=== PATIENT | male | born 1960 | race Caucasian/White ===

== ENCOUNTER → 2019-10-18 09:51 | Outpatient (CLI) | payer OTHER, SELFPAY ==
--- NOTE | 2019-10-18 | DI.RAD.S_ITS ---
PROCEDURE: XR LUMBAR SPINE 2-3V INDICATIONS: low back pain TECHNIQUE: 2 views of the lumbar spine were acquired. COMPARISON: None. FINDINGS: Bones: 5 iwr-zli-kohrioi vertebrae are present. There is normal bony alignment. No vertebral body compression fractures. No suspicious bony lesions. There is a moderate degree of degenerative disc disease along the lumbosacral spine most pronounced at L4-5 and L5-S1. Additionally, facet osteoarthritis is progressively more prominent from L3 inferiorly and especially at L5-S1. Spinal and foraminal stenosis would be expected as result. Soft tissues: Overlying bowel gas pattern is normal. No suspicious soft tissue calcifications. IMPRESSION: Degenerative disc disease and facet osteoarthritis is progressively more prominent over the lower half of the LS-spine to the degree that significant spinal and foraminal stenosis would be expected at L4-5 and L5-S1. Dictated by: Naseem Wade M.D. on 10/18/2019 at 10:30 Approved by: Naseem Wade M.D. on 10/18/2019 at 10:32
== END ==
PROVIDERS: PCP Physician Assistant; Visit Provider Chiropractor
DX: M54.5 Low back pain (principal); M51.36 Other intervertebral disc degeneration, lumbar region; M51.37 Other intervertebral disc degeneration, lumbosacral region; M47.816 Spondylosis without myelopathy or radiculopathy, lumbar region; M47.817 Spondylosis without myelopathy or radiculopathy, lumbosacral region
CPT/HCPCS: 72100

== ENCOUNTER → 2020-02-26 09:42 | Outpatient (CLI) | payer OTHER, SELFPAY ==
[2020-02-26 10:05] LABS: Appearance Urine UA CLEAR; Bilirubin Urine UA NEGATIVE (NEGATIVE); Color Urine UA YELLOW; Glucose Urine UA NEGATIVE (Negative); Ketones Urine UA NEGATIVE (NEGATIVE); Leukocyte Esterase Urine UA NEGATIVE (NEGATIVE); Nitrite Urine UA NEGATIVE (Negative); Occult Blood Urine UA NEGATIVE (Negative); Protein Urine UA NEGATIVE (Negative); Urobilinogen Urine UA 0.2 E.U./dL (0.2); pH Urine UA 7.5 (4.5-8.0)
[2020-02-26 10:07] LABS: Add Manual Diff / Slide Review NO; Basophils Absolute Auto 0 /uL (0-100); Basophils Percent Auto 0.8 % (0-2); Eosinophils Absolute Auto 0 /uL (0-450); Eosinophils Percent Auto 1.4 % (2-4); Hematocrit 42.5 % (41-53); Hemoglobin 14.9 g/dL (13.5-17.5); Lymphocytes Absolute Auto 1200 /uL (1100-4500); Lymphocytes Percent Auto 35.4 % (25-40); Mean Corpuscular Hemoglobin 33.2 PG (26-34); Mean Corpuscular Volume 94.8 fL (80-100); Monocytes Absolute Auto 400 /uL (0-900); Monocytes Percent Auto 10.7 % (3-14); Neutrophils Absolute Auto 1800 /uL (1500-7000); Neutrophils Percent Auto 51.7 % (50-75); Platelet Count 223 X10^3/uL (150-400); Red Blood Cell Count 4.49 X10^6/uL (4.5-5.9); Red Cell Distribution Width 12.6 % (11.6-14.8); White Blood Cell Count 3.5 X10^3/uL (4.5-11.0)
[2020-02-26 10:52] LABS: Alanine Aminotransferase 25 IU/L (<50); Albumin 4.8 g/dL (3.5-5.0); Albumin Globulin Ratio 1.5 (1.0-2.8); Alkaline Phosphatase 46 U/L (38-126); Aspartate Aminotransferase 38 IU/L (17-59); BUN Creatinine Ratio 17.6 (6-22); Bilirubin Total 0.6 mg/dL (0.2-1.3); Blood Urea Nitrogen 13 mg/dL (9-20); Calcium 9.5 mg/dL (8.4-10.2); Carbon Dioxide 31 mmol/L (22-32); Chloride 102 mmol/L (98-107); Cholesterol 227 mg/dL (140-199); Estimated Glomerular Filt Rate > 60.0 mL/min (>60); Globulin 3.2 g/dL (1.7-4.1); Glucose 101 mg/dL (70-100); HDL Cholesterol 57 mg/dL (40-60); HEMOLYSIS < 15 (0-50); LDL Cholesterol Calculated 158 mg/dL (<100); Potassium 4.1 mmol/L (3.4-5.1); Sodium 140 mmol/L (137-145); Triglycerides 58 mg/dL (35-150)
[2020-02-26 11:14] LABS: Prostate Specific Antigen Scrn 0.847 ng/mL (0.1-4.0)
[2020-02-26 19:31] LABS: Hemoglobin A1C% w Est Avg Glu 5.2 % (4.0-6.0)
== END ==
PROVIDERS: PCP Family Medicine; Referring Provider Family Medicine; Visit Provider Family Medicine
DX: R41.3 Other amnesia (principal)
CPT/HCPCS: 36415; 80053; 80061; 81003; 83036; 84443; 85025; G0103

== ENCOUNTER → 2020-09-02 08:44 | Outpatient (CLI) | payer OTHER, SELFPAY ==
[2020-09-02 10:14] LABS: Add Manual Diff / Slide Review NO; Basophils Absolute Auto 0 /uL (0-100); Basophils Percent Auto 0.7 % (0-2); Eosinophils Absolute Auto 100 /uL (0-450); Eosinophils Percent Auto 1.5 % (2-4); Hemoglobin 14.3 g/dL (13.5-17.5); Lymphocytes Absolute Auto 1300 /uL (1100-4500); Lymphocytes Percent Auto 33.7 % (25-40); Mean Corpuscular Hemoglobin 32.5 PG (26-34); Mean Corpuscular Volume 95.7 fL (80-100); Monocytes Absolute Auto 400 /uL (0-900); Monocytes Percent Auto 9.7 % (3-14); Neutrophils Absolute Auto 2100 /uL (1500-7000); Neutrophils Percent Auto 54.4 % (50-75); Platelet Count 209 X10^3/uL (150-400); Red Blood Cell Count 4.39 X10^6/uL (4.5-5.9); Red Cell Distribution Width 12.5 % (11.6-14.8); White Blood Cell Count 3.8 X10^3/uL (4.5-11.0)
[2020-09-02 11:14] LABS: Alanine Aminotransferase 28 IU/L (<50); Albumin 4.2 g/dL (3.5-5.0); Albumin Globulin Ratio 1.4 (1.0-2.8); Alkaline Phosphatase 48 U/L (38-126); Aspartate Aminotransferase 33 IU/L (17-59); BUN Creatinine Ratio 17.3 (6-22); Bilirubin Total 0.6 mg/dL (0.2-1.3); Blood Urea Nitrogen 14 mg/dL (9-20); Calcium 9.4 mg/dL (8.4-10.2); Carbon Dioxide 33 mmol/L (22-32); Chloride 102 mmol/L (98-107); Cholesterol 193 mg/dL (140-199); Estimated Glomerular Filt Rate > 60.0 mL/min (>60); Globulin 2.9 g/dL (1.7-4.1); Glucose 97 mg/dL (70-100); HDL Cholesterol 71 mg/dL (40-60); HEMOLYSIS < 15 (0-50); LDL Cholesterol Calculated 108 mg/dL (<100); Potassium 4.3 mmol/L (3.4-5.1); Sodium 138 mmol/L (137-145); Total Protein 7.1 g/dL (6.3-8.2); Triglycerides 71 mg/dL (35-150)
[2020-09-02 11:44] LABS: TSH w/ Reflex to FT4 2.93 uIU/mL (0.47-4.68)
[2020-09-06 15:41] LABS: Percent Free Testosterone 3.01 % (1.50-4.20); Testosterone Total 511.5 ng/dL (264.0-916.0)
== END ==
PROVIDERS: PCP Family Medicine; Referring Provider Family Medicine; Visit Provider Family Medicine
DX: R53.83 Other fatigue (principal)
CPT/HCPCS: 36415; 80053; 80061; 84402; 84403; 84443; 85025

== ENCOUNTER → 2021-10-24 08:52 | Outpatient (CLI) | payer OTHER, SELFPAY ==
[2021-10-24 10:48] LABS: COVID19 -Nasal RAPID Negative (Negative)
== END ==
PROVIDERS: PCP Family Medicine; Visit Provider Surgery
DX: Z01.812 Encounter for preprocedural laboratory examination (principal); Z20.822 Contact with and (suspected) exposure to COVID-19
CPT/HCPCS: 87635; C9803

== ENCOUNTER 2021-10-27 07:03 | Day surgery (SDC) | payer OTHER, SELFPAY ==
[2021-10-27] VITALS (9 sets, daily range): BP systolic 98–131; BP diastolic 58–80; PULSE 48–114; RESP 10–16; TEMP 36.1–36.3; O2SAT 98–100; BMI 28.7
--- NOTE | 2021-10-27 | PATH_ITS ---
[facility] Accession Number: [id number] . 01 Material submitted: . PART A: colon - TRANSVERSE COLON POLYP PART B: rectum - RECTUM POLYP PART C: anal canal - ANAL CANAL POLUPS X2 . 01 Clinical history: . DX COLONOSCOPY . 02 Diagnosis: A. Transverse Colon, Polyp, Biopsy: Tubular adenoma. . B. Rectum, Polyp, Biopsy: Hyperplastic polyp. . C. Anal Canal, Polyps x2, Biopsies: Multiple fragments of tubulovillous adenoma and tubular adenoma. No evidence of malignancy or high-grade dysplasia. MRV 10/29/2021 1048 Local . 02 Electronically signed: . Shanit Sandoval MD, Pathologist NPI- [id number] . 01 Gross description: . Part A: TRANSVERSE COLON POLYP: Received in formalin are 3 fragment(s) of florentino, soft tissue measuring 0.1 x 0.1 x 0.1 cm to 0.2 x 0.2 x 0.2 cm submitted entirely in 1 cassette(s) Part B: RECTUM POLYP: Received in formalin is 1 fragment(s) of florentino, soft tissue measuring 0.5 x 0.3 x 0.3 cm submitted entirely in 1 cassette(s) Part C: ANAL CANAL POLUPS X2: Received in formalin are multiple fragment(s) of florentino, soft tissue measuring 0.1 x 0.1 x 0.1 cm to 0.6 x 0.6 x 0.5 cm submitted entirely in 1 cassette(s) /JANET 10/28/20212010 Local . 02 Pathologist provided ICD-10: D12.3, D12.8 . 02 CPT . 959222, 768101, 557363 Performed at: 01 [facility] [address] [id number] MD Dwight Cohw MD Phone: [phone] Performed at: 02 [facility] [address] [place] [id number] MD Shanti Sandoval MD Phone: [phone]
[2021-10-27] MEDS: LACTATED RINGERS 1,000 ML 42 ML IV ×2 (07:33→09:48)
--- NOTE | 2021-10-27 08:15 | P.HP_ITS ---
History of Present Illness History of Present Illness Date Patient Seen: 10/27/21 Time Patient Seen: 08:15 Chief complaint: DX COLONOSCOPY Narrative: The patient presents for colorectal sreening. Previous colonoscopy significant for benign polyps. Father had colon cancer. On further history denies any recent gastrointestinal symptoms. No nausea, vomiting, abdominal pain, loss of appetite, unexplained weight loss, change in bowel habits, diarrhea, constipatio n, melena, hematochezia, or bright red blood per rectum. Patient History Medical History (Updated 05/29/21 @ 09:19 by Henny Crane PA-C) Fatigue Gout Memory loss Surgical History History of tonsillectomy History of vasectomy Status post hernia repair Family & Social History Family History (Updated 01/06/17 @ 00:00 by Estrella Wilkins PA-C) Father History of colon cancer History of lung cancer Smoker Sister Stroke Social History: household members spouse Tobacco & Substance use: Smoking Status Never smoker alcohol intake current alcohol intake frequency holiday/special occasion Substance Use Type does not use Meds Home Medications and Allergies Home Medications Medication Instructions Recorded Confirmed Type multivitamin (Multiple Vitamins) 1 tab PO QDAY #0 12/15/16 10/27/21 History aspirin 81 mg tablet,delayed 81 mg PO QDAY #0 01/06/17 10/27/21 History release pravastatin 20 mg tablet See Rx Instructions .ROUTE 09/02/20 10/27/21 Rx .COMPLEX #90 tab Allergies Allergy/AdvReac Type Severity Reaction Status Date / Time No Known Drug Allergies Allergy Verified 05/29/21 09:09 Exam Vital Signs (past 8 hours): - 10/27/21 07:21 Temperature 97.2 F L Pulse Rate 70 Respiratory Rate 16 Blood Pressure 107/74 Pulse Oximetry 98 Oxygen Delivery Method Room Air Narrative Exam Narrative: Constitutional-he is oriented to person, place and time. No apparent distress Cardiovascular- regular rate, no peripheral edema Pulmonary-unlabored respiratory effort, no audible wheezing Abdominal-soft, non-tender, non-distended Assessment & Plan Assessment & Plan narrative: The patient requires colorectal screening for history of colonic polyps and colonoscopy is recommended. Technical details were discussed. Risks, benefits, alternatives explained. Risks including but not limited to myocardial infarction, aspiration, bleeding, pain, missed lesion, incomplete examination, need for further radiographic studies, colonic perforation, and need for major abdominal surgery were discussed. All questions were answered to their satisfaction, and they are in agreement with this plan. Time Spent With Patient Critical Care time: I spent a total of [] minutes of critical care time on this patient's care today; this time is exclusive of procedural time.
[2021-10-27] MEDS: fentaNYL 250 MCG/5 ML INJ IV (08:27)
[2021-10-27] MEDS: MIDAZOLAM 5 MG/5 ML VIAL IV (08:40)
--- NOTE | 2021-10-27 08:43 | PM.OP.COLON ---
Operative Date/Time/Diagnoses Date of procedure: 10/27/21 Time of procedure: 08:43 Pre-op diagnosis: Family history of colon cancer, personal history of colonic polyps Post-op diagnosis: same Procedure & Clinicians Study performed: Colonoscopy Same procedure as scheduled: Yes Indications: Family history of colon cancer, personal history of colonic polyps Surgeon: Alec Mane Procedure Notes Procedure in detail: Medications: Conscious sedation using 8mg IV midazolam and 200mcg IV of fentanyl The history and physical was performed/updated and the patient is ASA class is2. The procedure was discussed in detail with the patient. Potential risks complications including infection, bleeding, missed diagnosis, perforation, need for surgery, and were explained. Their questions were answered and informed consent was obtained. Patient was brought to the procedure room and placed standard monitoring equipment. The patient's vital signs were monitored continuously throughout the entire procedure. Prior to starting time-out was performed. The patient was placed in the left lateral recumbent position. Procedural sedation was administered. Examination began with a thorough inspection of the perianal area there was no evidence of fissures, fistulae, external hemorrhoids or cutaneous malignancy. The colonoscopy scope was then placed into the anal canal and was advanced to the cecum, which was identified by the ileocecal valve, the appendiceal orifice and the confluence of the taenia. The scope was then slowly withdrawn examining colon thoroughly in all directions, irrigating it of any residual stool. FINDINGS 1. 5 mm polyp transverse colon removed with biopsy forceps. 2. 5 mm rectal polyp removed with biopsy forceps. 3. 1 cm polyps x 2 within the anal canal removed with cold snare The patient tolerated the procedure well. They will be discharged once criteria are met. The prep was of good/excellent quality. The withdrawl time was 10 minutes. The sedation time was 22 minutes. Specimen(s): other (transverse, rectal, anal canal) Complications: none Impression: colonic polyps Post-procedure Recommendations: Colonoscopy in 3 years Disposition: same day surgery
[2021-10-27] MEDS: ONDANSETRON 4 MG/2 ML INJ IV (09:18)
== END 2021-10-27 10:07 | disposition home or self-care (01) ==
PROVIDERS: PCP Family Medicine; Referring Provider Surgery; Visit Provider Surgery
PROC: 0DJD8ZZ Inspection of Lower Intestinal Tract, Via Natural or Artificial Opening Endoscopic (ICD-10-PCS; CPT 45378; principal; 2021-10-27 08:30)
DX: Z12.11 Encounter for screening for malignant neoplasm of colon (principal); Z86.010 Personal history of colon polyps; Z80.0 Family history of malignant neoplasm of digestive organs; D12.3 Benign neoplasm of transverse colon; K62.1 Rectal polyp; D12.9 Benign neoplasm of anus and anal canal
CPT/HCPCS: 45385; 45380; 99152; J2250; J2405; J3010

== ENCOUNTER → 2021-11-07 10:08 | Outpatient (CLI) | payer OTHER, SELFPAY ==
[2021-11-07 10:34] LABS: COVID19 -Nasal RAPID POSITIVE (Negative)
== END ==
PROVIDERS: PCP Family Medicine; Visit Provider Nurse Practitioner Family
DX: Z20.822 Contact with and (suspected) exposure to COVID-19 (principal); J02.9 Acute pharyngitis, unspecified
CPT/HCPCS: 87070; 87635

== ENCOUNTER 2021-11-07 10:38 | Emergency (ER) | payer OTHER, SELFPAY ==
[2021-11-07] VITALS (10 sets, daily range): BP systolic 111–136; BP diastolic 59–80; PULSE 72–89; RESP 18; TEMP 37.1; O2SAT 93–99; BMI 27.1
--- NOTE | 2021-11-07 11:12 | DI.RAD.S_ITS ---
PROCEDURE: XR CHEST 1V INDICATIONS: flu-like symptoms TECHNIQUE: One view of the chest was acquired. COMPARISON: None. FINDINGS: Surgical changes and devices: None. Lungs and pleura: An incomplete inspiratory result is noted, causing a crowded appearance to the lung markings. No focal infiltrates are seen. No pneumothorax or significant pleural effusions are seen. Mediastinum: Mediastinal contours appear normal. Heart size is normal. Bones and chest wall: No suspicious bony lesions. Age-appropriate bony degenerative changes are seen. Overlying soft tissues appear unremarkable. IMPRESSION: Limited portable chest examination, without a significant cardiopulmonary abnormality identified. Dictated by: Buddy Luna M.D. on 11/07/2021 at 10:43 Approved by: Buddy Luna M.D. on 11/07/2021 at 10:44
--- NOTE | 2021-11-07 11:13 | ED.URI ---
HPI - URI/Sore Throat General Chief Complaint: Upper Respiratory Symptoms Stated Complaint: Needs fluid IV- sent by [facility] Time Seen by Provider: 11/07/21 11:04 Source: patient and family Mode of arrival: Ambulatory History of Present Illness HPI Narrative: Patient is 61-year-old male with history of hyperlipidemia, gout, who presents with 4 days of body aches cough sore throat. The to walk-in clinic today positive for COVID. States the last 2 days he has been unable to take any sort of pill or drink any fluid he is barely able to swallow his own spit because his throat hurts so badly. He denies any dizziness or lightheadedness. He is had generalized body aches productive cough and does not feel well. He is vaccinated with Aereo. Related Data Home Medications Medication Instructions Recorded Confirmed multivitamin (Multiple Vitamins) 1 tab PO QDAY #0 12/15/16 11/07/21 aspirin 81 mg tablet,delayed 81 mg PO QDAY #0 01/06/17 11/07/21 release Previous Rx's Medication Instructions Recorded pravastatin 20 mg tablet See Rx Instructions .ROUTE 09/02/20 .COMPLEX #90 tab Allergies Allergy/AdvReac Type Severity Reaction Status Date / Time No Known Drug Allergies Allergy Verified 11/07/21 09:57 Review of Systems Review of Systems ROS Unobtainable: All systems reviewed & are unremarkable except as noted in HPI and below Constitutional Constitutional: Reports body ache(s), Reports chills and Reports fever(s) ENT Ears, Nose, Mouth, and Throat: Reports as per HPI, Denies vertigo, Denies dizziness, Reports odynophagia and Reports sore throat Cardiovascular Cardiovascular: Denies chest pain, Denies irregular heart rhythm and Denies lightheadedness Respiratory Respiratory: Reports as per HPI, Reports chest congestion and Reports cough Gastrointestinal Gastrointestinal: Denies nausea, Reports odynophagia and Denies vomiting Genitourinary Genitourinary: Denies urinary frequency and Denies urinary hesitancy Musculoskeletal Musculoskeletal: Reports myalgias Integumentary/Breasts Skin/Breast: Denies rash Neurologic Neurologic: Denies vertigo and Denies dizziness Patient History Medical History (Updated 11/07/21 @ 13:03 by Charu Fuentes DO) Fatigue Gout Memory loss Surgical History History of tonsillectomy History of vasectomy Status post hernia repair Family History (Updated 01/06/17 @ 00:00 by Etsrella Wilkins PA-C) Father History of colon cancer History of lung cancer Smoker Sister Stroke Social History household members: spouse Smoking Status: Never smoker Smokeless tobacco user: chewing tobacco alcohol intake: current Smoking Status: Never smoker alcohol intake frequency: holidays/special occasions only Substance Use Type: does not use Exam Initial Vital Signs Initial Vital Signs: Vital Signs Temperature 98.8 F 11/07/21 10:45 Pulse Rate 80 11/07/21 10:45 Respiratory Rate 18 11/07/21 10:45 Blood Pressure 125/77 11/07/21 10:45 Pulse Oximetry 95 11/07/21 10:45 GENERAL: 61-year-old male who appears to not feel well HEENT: Head atraumatic,EOMI, pupils reactive, face symmetric, moist mucous membranes PHARYNX: Mildly erythematous no uvular swelling or deviation managing own secretion no tonsillar exudate or enlargement CARDIOVASCULAR: Regular rate and rhythm without murmurs, rubs or gallops. RESPIRATORY: Breath sounds equal bilaterally, no wheezes rales or rhonchi. ABDOMEN: Soft, nontender. Normoactive bowel sounds all 4 quadrants. No guarding or rebound. EXTREMITIES: Normal range of motion, no clubbing or edema. Neurovascularly intact NEUROLOGICAL: Alert and oriented x4. No gross deficits SKIN: Warm, dry, no laceration, no petechiae, no rashes or lesions. Course Orders Ordered: ED Orders 11/07/21 11:12 XR chest 1V Stat 11/07/21 11:30 Complete Blood Count AUTO DIFF Stat Comprehensive Metabolic Panel Stat Discontinued Medications Sodium Chloride (Normal Saline 0.9%) 1,000 mls @ 1,000 mls/hr IV BOLUS ONE Stop: 11/07/21 12:11 Last Infusion: 11/07/21 13:17 Dose: 0 mls/hr Documented by: Admin: 11/07/21 11:21 Dose: 1,000 mls/hr Documented by: VALERIO Sodium Chloride (Normal Saline 0.9%) 1,000 mls @ 1,000 mls/hr IV BOLUS ONE Stop: 11/07/21 12:13 Last Admin: 11/07/21 12:17 Dose: Not Given Documented by: RAHUL Ketorolac Tromethamine (Ketorolac 30 Mg/Ml Vial) 30 mg IV NOW ONE Stop: 11/07/21 11:15 Last Admin: 11/07/21 11:21 Dose: 30 mg Documented by: VALERIO Vital Signs Vital signs: Vital Signs - 8 hr 11/07/21 10:45 11/07/21 10:52 11/07/21 10:54 Temperature 98.8 F Pulse Rate 80 85 Respiratory Rate 18 Blood Pressure 125/77 125/77 Pulse Oximetry 95 98 11/07/21 11:00 11/07/21 11:30 11/07/21 12:00 Temperature Pulse Rate 79 77 73 Respiratory Rate Blood Pressure 135/75 115/68 Pulse Oximetry 93 95 97 11/07/21 12:01 11/07/21 12:30 11/07/21 12:35 Temperature Pulse Rate 77 89 76 Respiratory Rate Blood Pressure 111/59 L 136/63 Pulse Oximetry 97 97 99 11/07/21 13:00 Temperature Pulse Rate 72 Respiratory Rate Blood Pressure 135/80 Pulse Oximetry 99 MDM - URI/Sore Throat Lab Data Result diagrams: 11/07/21 11:30 11/07/21 11:30 Labs: Lab Results 11/07/21 11/07/21 Range/Units 11:30 11:30 WBC 8.1 (4.5-11.0) X10^3/uL RBC 4.60 (4.5-5.9) X10^6/uL Hgb 14.9 (13.5-17.5) g/dL Hct 43.1 (41-53) % MCV 93.7 (80-100) fL MCH 32.5 (26-34) PG MCHC 34.7 (30-36) % RDW 12.3 (11.6-14.8) % Plt Count 158 (150-400) X10^3/uL Neut % (Auto) 70.9 (50-75) % Lymph % (Auto) 12.4 L (25-40) % Archer % (Auto) 16.2 H (3-14) % Eos % (Auto) 0.0 L (2-4) % Baso % (Auto) 0.5 (0-2) % Neut # (Auto) 5800 (2266-0424) /uL Lymph # (Auto) 1000 L (1539-9737) /uL Archer # (Auto) 1300 H (0-900) /uL Eos # (Auto) 0 (0-450) /uL Baso # (Auto) 0 (0-100) /uL Sodium 136 L (137-145) mmol/L Potassium 3.8 (3.4-5.1) mmol/L Chloride 102 (98-107) mmol/L Carbon Dioxide 29 (22-32) mmol/L BUN 11 (9-20) mg/dL Creatinine 0.70 (0.66-1.25) mg/dL Estimated GFR > 60.0 (>60) mL/min BUN/Creatinine Ratio 15.7 (6-22) Glucose 116 H (80-110) mg/dL Calcium 8.8 (8.4-10.2) mg/dL Total Bilirubin 0.6 (0.2-1.3) mg/dL AST 29 (17-59) IU/L ALT 25 (<50) IU/L Alkaline Phosphatase 46 (38-126) U/L Total Creatine Kinase Cancelled CK-MB (CK-2) Cancelled CK-MB (CK-2) Rel Index Cancelled Troponin I Cancelled C-Reactive Protein Cancelled Total Protein 7.9 (6.3-8.2) g/dL Albumin 4.5 (3.5-5.0) g/dL Globulin 3.4 (1.7-4.1) g/dL Albumin/Globulin Ratio 1.3 (1.0-2.8) MDM Narrative Medical decision making narrative: The patient is overall feeling much better with Toradol and IV fluids he has actually had things to eat and drink in the emergency department. No signs of significant dehydration. Discussed home monitoring with him. Discharge Plan Departure Patient Disposition: Home Clinical Impression: COVID-19 Instructions: DI for COVID-19 (Suspected or Confirmed ) Activity Restrictions/Additional Instructions: * if you have not yet been vaccinated is still recommended and encouraged that you do so once your infection has passed *Follow up with your primary provider in 2-3 days or call [phone] -You were giving Toradol at 11:15 am you may take Motrin 600 mg at 5:00 p.m. Ibuprofen 600 mg every 6 hours if needed for mild to moderate pain Tylenol 1000 mg every 6 hours if needed for atvg-dx-lkiswcey pain Increasing fluid intake AT HOME: -Monitor oxygen with pulse oximeter. If less than 90% for more than 1 hour please return to emergency department -I recommend lying on stomach for side rather than back, it has been proven to increase oxygen levels -Wash hands frequently. -Stay isolated at home please follow the isolation instructions below. -Increase fluid intake. -you may take Tylenol as directed if needed for pain or fever EMERGENCY warning signs for COVID-19: - Difficulty breathing or shortness of breath, oxygen less than 90% - Persistent pain or pressure in the chest - New confusion or inability to arouse - Bluish lips or face CDC Guidelines for home isolation: - Stay away from others - Limit contact with pets and animals: If you must care for a pet, wash your hands before and after interacting with them - Wear a mask while in public all places - Cover your mouth and nose with a tissue when you cough or sneeze. Dispose of tissues in a lined trash can and wash your hands immediately with soap and water for at least 20 seconds. If soap and water are not available, clean hands with alcohol-based hand food service driver that contains at least 60% alcohol. - Clean your hands often with soap and water for at least 20 seconds - Avoid touching your eyes, nose and mouth with unwashed hands - Do not share dishes, drinking glasses, cups, eating utensils, towels, or bedding with other people in your home. After using these items, wash them thoroughly with soap and water or put in the wet process technician. - Clean high-touch surfaces in your isolation area (?sick room? and bathroom) every day; let a caregiver clean and disinfect high-touch surfaces in other areas of the home. Clean the area or item with soap and water or another detergent if it is dirty. Then, use a household disinfectant. Prescriptions: No Action multivitamin [Multiple Vitamins] tablet 1 tab PO QDAY Qty: 0 0RF aspirin 81 MG tablet,delayed release (DR/EC) 81 mg PO QDAY Qty: 0 0RF Label Comments: 2 months pravastatin 20 mg tablet See Rx Instructions .ROUTE .COMPLEX Qty: 90 0RF Dose Instruction: TAKE 1 TABLET BY MOUTH AT BEDTIME Rx Instructions: TAKE 1 TABLET BY MOUTH AT BEDTIME Referrals: Sergey Boateng, [Primary Care Provider] -
[2021-11-07] MEDS: KETOROLAC 30 MG/ML VIAL IV (11:21)
[2021-11-07] MEDS: SODIUM CHLORIDE 0.9% 1,000 ML 1000 ML IV (11:21)
[2021-11-07 11:42] LABS: Add Manual Diff / Slide Review NO; Basophils Absolute Auto 0 /uL (0-100); Basophils Percent Auto 0.5 % (0-2); Eosinophils Absolute Auto 0 /uL (0-450); Hematocrit 43.1 % (41-53); Hemoglobin 14.9 g/dL (13.5-17.5); Lymphocytes Absolute Auto 1000 /uL (1100-4500); Lymphocytes Percent Auto 12.4 % (25-40); Mean Corpuscular HGB Conc 34.7 % (30-36); Mean Corpuscular Hemoglobin 32.5 PG (26-34); Mean Corpuscular Volume 93.7 fL (80-100); Monocytes Absolute Auto 1300 /uL (0-900); Monocytes Percent Auto 16.2 % (3-14); Neutrophils Absolute Auto 5800 /uL (1500-7000); Neutrophils Percent Auto 70.9 % (50-75); Platelet Count 158 X10^3/uL (150-400); Red Cell Distribution Width 12.3 % (11.6-14.8); White Blood Cell Count 8.1 X10^3/uL (4.5-11.0)
[2021-11-07 11:58] LABS: Alanine Aminotransferase 25 IU/L (<50); Albumin 4.5 g/dL (3.5-5.0); Albumin Globulin Ratio 1.3 (1.0-2.8); Alkaline Phosphatase 46 U/L (38-126); Aspartate Aminotransferase 29 IU/L (17-59); BUN Creatinine Ratio 15.7 (6-22); Bilirubin Total 0.6 mg/dL (0.2-1.3); Blood Urea Nitrogen 11 mg/dL (9-20); Calcium 8.8 mg/dL (8.4-10.2); Carbon Dioxide 29 mmol/L (22-32); Chloride 102 mmol/L (98-107); Estimated Glomerular Filt Rate > 60.0 mL/min (>60); Globulin 3.4 g/dL (1.7-4.1); Glucose 116 mg/dL (80-110); HEMOLYSIS < 15 (0-50); Potassium 3.8 mmol/L (3.4-5.1); Sodium 136 mmol/L (137-145); Total Protein 7.9 g/dL (6.3-8.2)
== END 2021-11-07 13:18 | disposition home or self-care (01) ==
PROVIDERS: Emergency Provider Emergency Medicine; PCP Family Medicine
DX: U07.1 COVID-19 (principal); Z20.822 Contact with and (suspected) exposure to COVID-19; J02.9 Acute pharyngitis, unspecified
CPT/HCPCS: 36415; 71045; 80053; 85025; 87070; 87635; 96361; 96374; 99284; J1885

== ENCOUNTER → 2021-11-14 09:54 | Outpatient (CLI) | payer OTHER, SELFPAY ==
[2021-11-14 12:09] LABS: COVID19 -Nasal RAPID POSITIVE (Negative)
== END ==
PROVIDERS: PCP Family Medicine; Visit Provider Nurse Practitioner Critical Care Medicine
DX: U07.1 COVID-19 (principal); Z20.822 Contact with and (suspected) exposure to COVID-19
CPT/HCPCS: 87635

== ENCOUNTER → 2022-05-28 08:47 | Outpatient (CLI) | payer OTHER, SELFPAY ==
[2022-05-28 10:10] LABS: Add Manual Diff / Slide Review NO; Basophils Absolute Auto 0 /uL (0-100); Basophils Percent Auto 0.6 % (0-2); Eosinophils Absolute Auto 100 /uL (0-450); Eosinophils Percent Auto 2.3 % (2-4); Hematocrit 40.8 % (41-53); Hemoglobin 13.8 g/dL (13.5-17.5); Lymphocytes Absolute Auto 1200 /uL (1100-4500); Lymphocytes Percent Auto 36.7 % (25-40); Mean Corpuscular Volume 94.4 fL (80-100); Monocytes Absolute Auto 400 /uL (0-900); Monocytes Percent Auto 11.3 % (3-14); Neutrophils Absolute Auto 1600 /uL (1500-7000); Neutrophils Percent Auto 49.1 % (50-75); Platelet Count 227 X10^3/uL (150-400); Red Blood Cell Count 4.32 X10^6/uL (4.5-5.9); Red Cell Distribution Width 12.8 % (11.6-14.8); White Blood Cell Count 3.2 X10^3/uL (4.5-11.0)
[2022-05-28 10:53] LABS: Alanine Aminotransferase 21 IU/L (<50); Albumin 4.4 g/dL (3.5-5.0); Albumin Globulin Ratio 1.8 (1.0-2.8); Alkaline Phosphatase 46 U/L (38-126); Aspartate Aminotransferase 29 IU/L (17-59); BUN Creatinine Ratio 14.1 (6-22); Bilirubin Total 0.6 mg/dL (0.2-1.3); Blood Urea Nitrogen 12 mg/dL (9-20); Calcium 9.1 mg/dL (8.4-10.2); Carbon Dioxide 31 mmol/L (22-32); Chloride 103 mmol/L (98-107); Cholesterol 206 mg/dL (140-199); Estimated Glomerular Filt Rate > 60 mL/min (>60); Globulin 2.5 g/dL (1.7-4.1); Glucose 96 mg/dL (80-110); HDL Cholesterol 57 mg/dL (40-60); HEMOLYSIS < 15 (0-50); LDL Cholesterol Calculated 139 mg/dL (<100); Potassium 4.4 mmol/L (3.4-5.1); Sodium 139 mmol/L (137-145); Total Protein 6.9 g/dL (6.3-8.2); Triglycerides 49 mg/dL (35-150); Uric Acid 5.7 mg/dL (3.5-8.5)
[2022-05-28 11:19] LABS: Prostate Specific Antigen 1.24 ng/mL (0.10-4.00)
== END ==
PROVIDERS: PCP Family Medicine; Referring Provider Family Medicine; Visit Provider Family Medicine
DX: E78.5 Hyperlipidemia, unspecified (principal); M10.9 Gout, unspecified; Z00.00 Encounter for general adult medical examination without abnormal findings; Z12.5 Encounter for screening for malignant neoplasm of prostate
CPT/HCPCS: 36415; 80053; 80061; 84153; 84550; 85025

== ENCOUNTER → 2022-06-05 09:15 | Outpatient (CLI) | payer OTHER, SELFPAY ==
--- NOTE | 2022-06-05 | DI.RAD.S_ITS ---
PROCEDURE: XR LUMBAR SPINE 2-3V INDICATIONS: LOW BACK PAIN L4-L5 TECHNIQUE: 3 views of the lumbar spine were acquired. COMPARISON: [facility], CR, XR LUMBAR SPINE 2-3V, 10/18/2019, 9:59. FINDINGS: Bones: 5 rpc-pel-itysqbe vertebrae are present. 2 mm of retrolisthesis of L1 on L2. 4 mm of retrolisthesis of L2 on L3 and L3 on L4. Multilevel disc space narrowing and endplate osteophyte formation throughout the thoracolumbar spine. Facet hypertrophy throughout the lumbar spine. No vertebral body compression fractures. No suspicious bony lesions. Soft tissues: Overlying bowel gas pattern is normal. No suspicious soft tissue calcifications. IMPRESSION: 1. Multilevel degenerative disc and facet disease. 2. No acute fracture. No osseous lesion. If symptoms and/or clinical suspicion for pathology persist, further assessment with repeat, or advanced imaging (e.g., CT, MRI, or bone scan) may be helpful for further assessment. Dictated by: Sushil Cadet M.D. on 06/05/2022 at 11:01 Approved by: Sushil Cadet M.D. on 06/05/2022 at 11:02
== END ==
PROVIDERS: PCP Family Medicine; Referring Provider Family Medicine; Visit Provider Family Medicine
DX: M51.36 Other intervertebral disc degeneration, lumbar region (principal); M54.50 Low back pain, unspecified
CPT/HCPCS: 72100

== ENCOUNTER → 2022-07-06 09:02 | Outpatient (CLI) | payer OTHER, SELFPAY ==
--- NOTE | 2022-07-06 09:38 | DI.MRI.S_ITS ---
PROCEDURE: MR LUMBAR SPINE WO CON INDICATIONS: back pain TECHNIQUE: Noncontrast sagittal T1 spin echo and T2 fast echo, sagittal STIR, and T2 fast spin echo through the lumbar spine. In cases with scoliosis, additional coronal T2 fast spin echo may be performed. COMPARISON: [facility], CR, XR LUMBAR SPINE 2-3V, 10/18/2019, 9:59. [facility], CR, XR LUMBAR SPINE 2-3V, 06/05/2022, 9:21. FINDINGS: Image quality: This examination is limited by involuntary motion artifact. Alignment and Curvature: There is minimal retrolisthesis seen at L1-L2, L2-L3, L3-L4, and L4-L5. Minimal anterolisthesis is seen at L5-S1. Bone Marrow: Marrow is of normal overall signal. No acute vertebral body compression fractures. Spinal Cord: Conus medullaris terminates at the L1 level. Visualized cord demonstrates normal signal and size. Paraspinous Soft Tissues: No paravertebral masses. At the inferior pole of the right kidney, there is a 5.2 cm cyst seen. T12-L1: Mild loss of disc height is seen. Mild to moderate disc bulge is seen. No significant neural foraminal narrowing is seen. Minimal central canal narrowing is seen. L1-L2: The disc height is well-preserved. Loss of disc signal is seen at this level. Mild to moderate disc bulge is seen. Moderate bilateral neural foraminal narrowing is seen. Mild to moderate central canal narrowing is seen. L2-L3: Mild loss of disc height is seen. Loss of disc signal is seen. Moderate generalized disc bulge is seen. There is a focal annular fissure seen posteriorly. Mild facet joint hypertrophy is seen. At least moderate bilateral neural foraminal narrowing can be seen. At least moderate central canal narrowing is seen at this level. L3-L4: The disc height is well-preserved. Loss of disc signal is seen at this level. Moderate generalized disc bulge is seen. There is a superimposed central disc protrusion. Moderate facet joint hypertrophy is seen. At least moderate bilateral neural foraminal narrowing can be seen, left worse than right. There is a degree of compression seen upon the exiting nerve roots. At least moderate central canal narrowing is seen. L4-L5: Mild loss of disc height is seen. Loss of disc signal is seen. Moderate generalized disc bulge is seen. At least moderate facet hypertrophy is seen at this level. There is at least moderate bilateral neural foraminal narrowing seen. There is a degree of compression seen upon the exiting nerve roots. Moderate central canal narrowing is seen. L5-S1: Mild loss of disc height is seen. Loss of disc signal is seen. Moderate generalized disc bulge is seen. There is moderate to severe facet hypertrophy seen, right worse than left. There is moderate to severe bilateral neural foraminal narrowing seen, with an associated a degree of compression seen upon the exiting nerve roots. Mild to moderate central canal narrowing can be seen. IMPRESSION: Multiple levels of lumbar spine degenerative change are seen, which are worst inferiorly. Several sites of significant neural foraminal narrowing can be seen, with associated exiting nerve root compression. At least moderate central canal narrowing can be seen at L2-L3 and L3-L4. Dictated by: Buddy Luna M.D. on 07/06/2022 at 9:47 Approved by: Buddy Luna M.D. on 07/06/2022 at 9:51
== END ==
PROVIDERS: PCP Family Medicine; Referring Provider Family Medicine; Visit Provider Family Medicine
DX: M51.16 Intervertebral disc disorders with radiculopathy, lumbar region (principal); M48.062 Spinal stenosis, lumbar region with neurogenic claudication; M54.50 Low back pain, unspecified; G89.29 Other chronic pain
CPT/HCPCS: 72148

== ENCOUNTER → 2022-08-11 07:00 | Outpatient (CLI) | payer OTHER, SELFPAY ==
[2022-08-11 08:19] LABS: Alanine Aminotransferase 37 IU/L (<50); Albumin 4.3 g/dL (3.5-5.0); Albumin Globulin Ratio 1.4 (1.0-2.8); Alkaline Phosphatase 41 U/L (38-126); Aspartate Aminotransferase 39 IU/L (17-59); BUN Creatinine Ratio 18.4 (6-22); Bilirubin Total 0.3 mg/dL (0.2-1.3); Blood Urea Nitrogen 16 mg/dL (9-20); Calcium 8.9 mg/dL (8.4-10.2); Carbon Dioxide 29 mmol/L (22-32); Chloride 104 mmol/L (98-107); Cholesterol 177 mg/dL (140-199); Estimated Glomerular Filt Rate > 60 mL/min (>60); Glucose 88 mg/dL (80-110); HDL Cholesterol 58 mg/dL (40-60); HEMOLYSIS < 15 (0-50); LDL Cholesterol Calculated 95 mg/dL (<100); Potassium 4.3 mmol/L (3.4-5.1); Sodium 140 mmol/L (137-145); Total Protein 7.3 g/dL (6.3-8.2); Triglycerides 122 mg/dL (35-150)
[2022-08-11 08:20] LABS: Add Manual Diff / Slide Review NO; Basophils Absolute Auto 0 /uL (0-100); Basophils Percent Auto 0.5 % (0-2); Eosinophils Absolute Auto 100 /uL (0-450); Eosinophils Percent Auto 3.2 % (2-4); Hematocrit 40.8 % (41-53); Hemoglobin 13.9 g/dL (13.5-17.5); Lymphocytes Absolute Auto 1600 /uL (1100-4500); Mean Corpuscular Volume 93.9 fL (80-100); Monocytes Absolute Auto 400 /uL (0-900); Monocytes Percent Auto 10.9 % (3-14); Neutrophils Absolute Auto 1500 /uL (1500-7000); Neutrophils Percent Auto 42.4 % (50-75); Platelet Count 203 X10^3/uL (150-400); Red Blood Cell Count 4.34 X10^6/uL (4.5-5.9); Red Cell Distribution Width 13.2 % (11.6-14.8); White Blood Cell Count 3.6 X10^3/uL (4.5-11.0)
[2022-08-11 09:05] LABS: HEMOLYSIS < 15 (0-50); Iron 61 ug/dL (49-181)
[2022-08-11 09:07] LABS: Vitamin B12 480 pg/mL (239-931)
[2022-08-11 09:16] LABS: Percent Iron Saturation 20 % (20-50); Total Iron Binding Capacity 307 ug/dL (261-462); Transferrin 230 mg/dL (206-381)
== END ==
PROVIDERS: PCP Family Medicine; Referring Provider Family Medicine; Visit Provider Family Medicine
DX: D64.9 Anemia, unspecified (principal)
CPT/HCPCS: 36415; 80053; 80061; 82607; 83540; 83550; 85025

== ENCOUNTER 2022-09-10 09:55 | Outpatient (CLI) | payer OTHER, SELFPAY ==
[2022-09-10] VITALS (9 sets, daily range): BP systolic 110–120; BP diastolic 66–80; PULSE 62–78; RESP 12–18; TEMP 36.4; O2SAT 97–99
--- NOTE | 2022-09-10 09:56 | DI.RAD.S_ITS ---
PROCEDURE: PAIN L/SI FACET INJ/BLK 1STL INDICATIONS: SPONDYLOSIS COMPARISON: None. FINDINGS: Fluoroscopic spot filming was performed to verify placement of spinal needles at the L4 and L5 level(s), as labeled on the films. Appropriate location(s) of the needle tip(s) was confirmed by injection of iodinated contrast. IMPRESSION: Needle placement overlying L4 on L5. Dictated by: Conchita Elmore M.D. on 09/10/2022 at 14:51 Approved by: Conchita Elmore M.D. on 09/10/2022 at 14:51
[2022-09-10] MEDS: MIDAZOLAM 2 MG/2 ML VIAL IV (11:23)
[2022-09-10] MEDS: IOPAMIDOL 15 ML VIAL 3 ML INJ (11:28)
[2022-09-10] MEDS: BETAMETHASONE 30 MG/5 ML MDV 12 MG INJ (11:29)
[2022-09-10] MEDS: BUPIVACAINE 0.5% MDV 2 ML SUBCUT (11:29)
--- NOTE | 2022-09-10 11:39 | P.PCN_ITS ---
Date/Time/Diagnoses Date of procedure: 09/10/22 Time of procedure: 11:39 Pre-procedure diagnosis: 1. FACET ARTHROPATHY, 2. AXIAL LBP, 3. MULTILEVEL DDD Post-procedure diagnosis: same Procedure Notes Procedure: 1. FLUOROSCOPICALLY GUIDED CONTRAST CONTROLLED FACET JOINT INJECTIONS RIGHT L4/5, L5/S1 Indications: Deyanira is referred by Dr. Boateng for treatment of Axial LBP Physician: Leoncio Garcia Total Fluoroscopy time (seconds): 8 Total sedation minutes: 12 Complications: none Procedure in detail & Post-procedure care: FINDINGS Multilevel Facet Arthropathy with Clinically significant axial LBP DESCRIPTION OF PROCEDURE Fluoroscopically guided, contrast-controlled right L4/5, L5/S1 facet joint injections. Following review of allergy and review of potential side effects and complications, including, but not necessarily limited to, infection, allergic reaction, local tissue breakdown, stroke, temporary or permanent nerve injury, paralysis, and possible , the patient indicated that the patient understood and agreed to proceed. An informed consent document was signed by the patient, witnessed by a nurse, and placed in the patient's chart. Additionally, other treatment options including medications, modalities, and physical therapy were reviewed with the patient. After review of previous anaesthesic history and IV conscious sedation the patient was deemed safe to proceed with today?s procedure with IV conscious sedation as ASA class II designation. Safety time-out was performed to confirm patient ID, procedure to be performed and site of procedure. IV sedation was accomplished with a combination of 2mg of Versed was administered by the RN after DO order, titrated to patient comfort during the course of the procedure while the patient remained responsive to all verbal commands. In the prone position, following sterile prep and drape of the lumbar region, the posterior aspect of the right L4/5, L5/S1 facet joints were identified fluoroscopically. The skin was anesthetized via a 25-gauge 1.5-inch needle with 1% lidocaine solution into the corresponding facet joints. At this point, a 22- gauge 3.5-inch spinal needle was atraumatically introduced and advanced under fluoroscopic guidance into the corresponding facet joints. Following negative aspiration, injections of approximately 0.2-cc of Isovue 200 confirmed interarticular placement without vascular uptake. Radiological data, including multiple fluoroscopic views of the lumbosacral spine, reveal a spinal needle at the right L4/5, L5/S1 facet joints. Subsequent views show flow of contrast material both superiorly and inferiorly within the joint space without vascular or intrathecal uptake. At this point, a total of 0.5cc including a mixture of 0.25cc Marcaine and 0.25cc betamethasone was injected without complication into each of the corresponding facet joints. The procedure tolerated the procedure well without signs or symptoms of complications prior to transfer to the recovery area continued monitoring without incident. The patient was then transferred to the recovery area where they were observed for an appropriate period of time after the injection. The patient reported a VAS score of 7 prior to the procedure and a post-procedure VAS of 1. POST OP INSTRUCTIONS The patient was provided a Pain Log to continue to record their response to the target-specific procedure prior to follow-up visit with their referring physician. Additionally, specific post-injection care instructions and a contact number to our office were provided if concerns arise regarding possible complications associated with the procedure are suspected.
== END 2022-09-10 12:25 | disposition home or self-care (01) ==
PROVIDERS: PCP Family Medicine; Referring Provider Physical Medicine & Rehabilitation; Visit Provider Physical Medicine & Rehabilitation
DX: M47.816 Spondylosis without myelopathy or radiculopathy, lumbar region (principal); M47.817 Spondylosis without myelopathy or radiculopathy, lumbosacral region; M51.36 Other intervertebral disc degeneration, lumbar region; M51.37 Other intervertebral disc degeneration, lumbosacral region
CPT/HCPCS: 64493; 64494; 99152; J0702; J2250

== ENCOUNTER → 2023-01-22 08:02 | Outpatient (CLI) | payer OTHER, SELFPAY ==
--- NOTE | 2023-01-22 08:04 | DI.US.S_ITS ---
PROCEDURE: US RENAL COMPLETE INDICATIONS: RIGHT KIDNEY INFERIOR POLE CYST TECHNIQUE: Real-time scanning was performed of the kidneys and bladder, with image documentation. COMPARISON: None. FINDINGS: Kidneys: Kidneys are normal in size. Right kidney measures 10.0 cm long; left kidney measures 10.8 cm long. Right renal cortical thickness is 1.8 cm; left renal cortical thickness is 1.7 cm. Renal cortical echotexture is normal. No hydronephrosis. No suspicious solid mass lesions. Multiple simple cysts are seen in the right kidney, the largest of which is an exophytic cyst measuring 4.2 x 4.9 x 5.7 cm at the superior pole. Nonspecific shadowing is seen in the right renal sinus that may be related to vascular calcifications or small renal calculi. Bladder: Pre-void bladder volume is 739 mL. Post-void residual is 117 mL. Pre-void images demonstrate no intraluminal masses or stones. On pre-void images, bilateral ureteral jets are noted with color Doppler interrogation. (Of note, ureteral jets may not be detectable in up to 25% of cases due to insufficient differences in specific gravity between ureteral and bladder urine). Miscellaneous: No free pelvic fluid. IMPRESSION: 1. Multiple simple right renal cysts, the largest is at the superior pole measuring up to 5.7 cm. 2. Shadowing is seen in the left renal sinus fat may be related to vascular calcifications although punctate calculi are not excluded. No hydronephrosis. 3. Postvoid residual bladder volume is 117 mL. Approved by: Ed Triplett M.D. on 01/22/2023 at 10:43
[2023-01-22 09:15] LABS: Add Manual Diff / Slide Review NO; Basophils Absolute Auto 0 /uL (0-100); Basophils Percent Auto 0.5 % (0-2); Eosinophils Absolute Auto 100 /uL (0-450); Eosinophils Percent Auto 2.2 % (2-4); Hematocrit 40.8 % (41-53); Hemoglobin 14.1 g/dL (13.5-17.5); Lymphocytes Absolute Auto 1500 /uL (1100-4500); Lymphocytes Percent Auto 30.1 % (25-40); Mean Corpuscular HGB Conc 34.6 % (30-36); Mean Corpuscular Hemoglobin 32.5 PG (26-34); Monocytes Absolute Auto 500 /uL (0-900); Monocytes Percent Auto 10.4 % (3-14); Neutrophils Absolute Auto 2800 /uL (1500-7000); Neutrophils Percent Auto 56.8 % (50-75); Platelet Count 205 X10^3/uL (150-400); Red Blood Cell Count 4.35 X10^6/uL (4.5-5.9); Red Cell Distribution Width 12.6 % (11.6-14.8); White Blood Cell Count 4.9 X10^3/uL (4.5-11.0)
[2023-01-22 09:26] LABS: HEMOLYSIS < 15 (0-50); Iron 98 ug/dL (49-181)
[2023-01-22 09:38] LABS: Percent Iron Saturation 32 % (20-50); Total Iron Binding Capacity 306 ug/dL (261-462); Transferrin 239 mg/dL (206-381)
[2023-01-22 09:40] LABS: Alanine Aminotransferase 34 IU/L (<50); Albumin 4.4 g/dL (3.5-5.0); Albumin Globulin Ratio 1.8 (1.0-2.8); Alkaline Phosphatase 45 U/L (38-126); Aspartate Aminotransferase 40 IU/L (17-59); Bilirubin Total 0.6 mg/dL (0.2-1.3); Blood Urea Nitrogen 16 mg/dL (9-20); Calcium 8.8 mg/dL (8.4-10.2); Carbon Dioxide 29 mmol/L (22-32); Chloride 103 mmol/L (98-107); Estimated Glomerular Filt Rate > 60 mL/min (>60); Globulin 2.5 g/dL (1.7-4.1); Glucose 93 mg/dL (80-110); HEMOLYSIS < 15 (0-50); Potassium 4.4 mmol/L (3.4-5.1); Sodium 138 mmol/L (137-145); Total Protein 6.9 g/dL (6.3-8.2)
[2023-01-22 10:22] LABS: Vitamin B12 688 pg/mL (239-931)
== END ==
PROVIDERS: PCP Family Medicine; Referring Provider Family Medicine; Visit Provider Family Medicine
DX: N28.1 Cyst of kidney, acquired (principal); D50.8 Other iron deficiency anemias; E78.2 Mixed hyperlipidemia
CPT/HCPCS: 36415; 76770; 80053; 82607; 83540; 83550; 85025

== ENCOUNTER 2023-04-13 09:20 | Outpatient (CLI) | payer OTHER, SELFPAY ==
[2023-04-13] VITALS (7 sets, daily range): BP systolic 98–151; BP diastolic 61–74; PULSE 63–97; RESP 12–20; TEMP 36.5; O2SAT 63–99
--- NOTE | 2023-04-13 09:22 | DI.RAD.S_ITS ---
PROCEDURE: PAIN L/SI FACET INJ/BLK 1STL INDICATIONS: SPONDYLOSIS COMPARISON: [facility], , PAIN L/SI FACET INJ/BLK 1STL, 09/10/2022, 11:29. FINDINGS: Fluoroscopic spot filming was performed to verify placement of spinal needles on the right at the L4, L5, and S1 levels, as labeled on the films. Appropriate location of the needle tips was confirmed by injection of iodinated contrast. IMPRESSION: Intraprocedural examination demonstrating appropriate positions of the needles. Dictated by: Buddy Luna M.D. on 04/13/2023 at 16:39 Approved by: Buddy Luna M.D. on 04/13/2023 at 16:40
[2023-04-13] MEDS: MIDAZOLAM 2 MG/2 ML VIAL 4 MG IV (10:47)
[2023-04-13] MEDS: BUPIVACAINE 0.5% (PF) 10 ML VIAL 5 ML INJ (10:50)
[2023-04-13] MEDS: IOPAMIDOL 15 ML VIAL 3 ML INJ (10:50)
--- NOTE | 2023-04-13 10:58 | PM.PROC.IR.1 ---
Date/Time/Diagnoses Date of procedure: 04/13/23 Time of procedure: 10:58 Pre-procedure diagnosis: 1. FACET ARTHROPATHY Post-procedure diagnosis: same Procedure Notes Procedure: 1. Right L4, L5 and S1 MB BLOCKS LA Indications: Deyanira is referred by Dr. Boateng for treatment of Right Axial LBP. Physician: Leoncio Garcia Total Fluoroscopy time (seconds): 6 Total sedation minutes: 11 Complications: none Procedure in detail & Post-procedure care: DESCRIPTION OF PROCEDURE Fluoroscopically guided, contrast-controlled right L4, L5 and S1 medial branch blocks with 0.5cc of 0.5% Marcaine. Following review of allergy and review of potential side effects and complications, including, but not necessarily limited to, infection, allergic reaction, local tissue breakdown, nerve injury, paralysis, stroke and possible , the patient indicated that the patient understood and agreed to proceed. An informed consent document was signed by the patient, witnessed by a nurse, and placed in the patient's chart. After review of previous anaesthesic history and IV conscious sedation the patient was deemed safe to proceed with today?s procedure with IV conscious sedation as ASA class II designation. Safety time-out was performed to confirm patient ID, procedure to be performed and site of procedure. IV sedation was accomplished with a combination of 4mg of Versed was administered by the RN after DO order, titrated to patient comfort during the course of the procedure while the patient remained responsive to all verbal commands In the prone position, following sterile prep and drape of the lumbar region, the right L4, L5 and S1 anatomical location of the medial branch of the dorsal ramus was identified fluoroscopically. Subsequently an anesthetic skin wheal using 1% lidocaine solution was initiated at each of the anatomical spots. Subsequently then a 22-gauge 3.5-inch spinal needle was atraumatically introduced and advanced under fluoroscopic guidance at each of the corresponding sites at the right L4, L5 and S1 MB. After negative aspiration, 0.2 cc of Isovue 200 was injected, confirming placement without vascular or intrathecal uptake. Subsequently then 0.5 cc of 0.5% Marcaine solution was injected at each of the corresponding sites at the right L4, L5 and S1 medial branch locations. The patient tolerated the procedure well without signs or symptoms of complications. The procedure tolerated the procedure well without signs or symptoms of complications prior to transfer to the recovery area continued monitoring without incident. Post-procedure, the patient was monitored initiating provocative activities to measure the amount of relief from block of the facetogenic pain. The patient reported a VAS of 7 prior to the procedure and a post-procedure VAS of 1. It has been a pleasure to assist in the diagnostic and therapeutic care of your patient. POST OP INSTRUCTIONS The patient was provided with a Pain Log to complete over the next several hours and subsequent days prior to the patient's follow up with the ordering physician. If the patient has superintendent maintenance relief to the solution applied, then they may be a candidate for medial branch rhizotomy. The patient is aware, was provided, once again, with a Pain Log and will follow up with the referring physician for review and clinical correlation.
== END 2023-04-13 11:16 | disposition home or self-care (01) ==
LOC: RAD 09:21
PROVIDERS: PCP Family Medicine; Referring Provider Physical Medicine & Rehabilitation; Visit Provider Physical Medicine & Rehabilitation
DX: M47.816 Spondylosis without myelopathy or radiculopathy, lumbar region (principal); M47.817 Spondylosis without myelopathy or radiculopathy, lumbosacral region
CPT/HCPCS: 64493; 64494; 99152; J2250

== ENCOUNTER 2023-06-08 07:30 | Outpatient (CLI) | payer OTHER, SELFPAY ==
[2023-06-08] VITALS (11 sets, daily range): BP systolic 102–130; BP diastolic 67–83; PULSE 64–72; RESP 11–22; TEMP 36.7; O2SAT 97–100
--- NOTE | 2023-06-08 07:33 | DI.RAD.S_ITS ---
PROCEDURE: PAIN L/S MED/LAT N RFA INDICATIONS: SPONDYLOSIS COMPARISON: [facility], XA, PAIN L/SI FACET INJ/BLK 1STL, 04/13/2023, 10:48. FINDINGS: Fluoroscopic spot filming was performed to verify placement of spinal needles on the right at the L4, L5, and S1 levels, as labeled on the films. IMPRESSION: Images during rhizotomy within normal limits. Dictated by: Buddy Luna M.D. on 06/08/2023 at 9:12 Approved by: Buddy Luna M.D. on 06/08/2023 at 9:12
[2023-06-08] MEDS: LIDOCAINE 1% 20 ML 5 ML INJ (08:27)
[2023-06-08] MEDS: BUPIVACAINE 0.5% (PF) 10 ML VIAL 5 ML INJ (08:27)
[2023-06-08] MEDS: MIDAZOLAM 2 MG/2 ML VIAL 4 MG IV (08:29)
--- NOTE | 2023-06-08 08:59 | P.PCN_ITS ---
Date/Time/Diagnoses Date of procedure: 06/08/23 Time of procedure: 08:59 Pre-procedure diagnosis: 1. RECALCITRANT FACET ARTHROPATHY Post-procedure diagnosis: same Procedure Notes Procedure: 1. RIGHT L4 AND L5 MEDIAL BRANCH RADIOFREQUENCY NEUROTOMY AND RIGHT S1 DORSAL RAMUS BRANCH RADIOFREQUENCY NEUROTOMY Indications: Deyanira is referred by Dr. Boateng for treatment of facet arthropathy. Physician: Leoncio Garcia Total Fluoroscopy time (seconds): 14 Total sedation minutes: 31 Complications: none Procedure in detail & Post-procedure care: DESCRIPTION OF PROCEDURE Right L4 and L5 medial branch radiofrequency neurotomy and right S1 dorsal ramus branch radiofrequency neurotomy under fluoroscopy with conscious sedation. The patient is well known to this clinic having undergone previous facet injections with good but temporary relief. The patient has experienced appropriate, concordant relief with previous facet and median branch blocks but the patient's pain has been recalcitrant to further conservative measures. Therefore, based upon the patient's relief and persistent symptoms, the patient is considered an appropriate candidate for facet rhizotomy. All of the patient's questions regarding the risks versus benefits of the procedure, including, but not limited to, bleeding, infection, temporary as well as lasting nerve injury, paralysis, stroke, and , as well treatment alternatives were answered to satisfaction. After review of previous anaesthesic history and IV conscious sedation the patient was deemed safe to proceed with today?s procedure with IV conscious sedation as ASA class II designation. Safety time-out was performed to confirm patient ID, procedure to be performed and site of procedure. IV sedation was accomplished with a combination of 4mg of Versed was administered by the RN after DO order, titrated to patient comfort during the course of the procedure while the patient remained responsive to all verbal commands. After obtaining informed consent, denial of pertinent drug allergies, as well as being made aware of the potential risks of bleeding, infection, spinal cord trauma, paralysis, temporary and permanent nerve damage, seizure, stroke, and possible , the patient was brought to the fluoroscopy suite and positioned prone on the fluoroscopy table. The lumbar region was prepped with Betadine and covered with a fenestrated drape in the usual sterile fashion. Appropriate monitors applied including pulse oximeter, pulse, and blood pressure for regular monitoring throughout the procedure. After local infiltration using 1% lidocaine, under fluoroscopic guidance, a 10- cm RF insulated needle with a 10-mm active tip was positioned parallel to the junction of the right sacral ala and the superior articulating process where the S1 dorsal ramus resides. Needle placement was confirmed with sensory stimulation at 50 Hz, with motor stimulation of .5v on the right which produced local stimulation without radicular component. The stimulation was then increased to 2v with, once again, only local multifidus stimulation without radicular component. This was then followed by two discreet lesions performed at 80 degrees Celsius for 90 seconds each. The needle was then removed and the identical procedure was performed along the length of the right L5 medial branch with motor stimulation at .7v on the right. The identical procedure was once again performed along the length of the right L4 medial branch with motor stimulation of .5v on the right. The patient tolerated the procedure well without signs or symptoms of complications prior to transfer to the recovery area continued monitoring without incident. The patient was then transferred to the recovery area where they were observed for an appropriate period of time after the injection. The patient was then transferred to the recovery area where they were observed for an appropriate period of time after the injection. The patient reported a VAS score of 8 prior to the procedure and a post- procedure VAS of 1. POST OP INSTRUCTIONS The patient was provided a Pain Log to continue to record the patient's response to the target-specific procedure prior to the patient's follow-up visit with the referring physician. Additionally, specific post-injection care instructions and a contact number to our office were provided if concerns arise regarding possible complications associated with the procedure are suspected.
== END 2023-06-08 09:06 | disposition home or self-care (01) ==
PROVIDERS: PCP Family Medicine; Referring Provider Physical Medicine & Rehabilitation; Visit Provider Physical Medicine & Rehabilitation
DX: M47.816 Spondylosis without myelopathy or radiculopathy, lumbar region (principal); M47.817 Spondylosis without myelopathy or radiculopathy, lumbosacral region
CPT/HCPCS: 64635; 64636; 99152; 99153; J2250

== ENCOUNTER → 2023-11-17 14:47 | Outpatient (CLI) | payer OTHER, SELFPAY ==
[2023-11-17 15:34] LABS: Add Manual Diff / Slide Review NO; Basophils Absolute Auto 0 /uL (0-100); Basophils Percent Auto 0.4 % (0-2); Eosinophils Absolute Auto 0 /uL (0-450); Eosinophils Percent Auto 0.3 % (2-4); Hematocrit 39.3 % (41-53); Hemoglobin 13.6 g/dL (13.5-17.5); Lymphocytes Absolute Auto 1500 /uL (1100-4500); Lymphocytes Percent Auto 34.1 % (25-40); Mean Corpuscular HGB Conc 34.5 % (30-36); Mean Corpuscular Hemoglobin 33.1 PG (26-34); Mean Corpuscular Volume 95.8 fL (80-100); Monocytes Absolute Auto 300 /uL (0-900); Neutrophils Absolute Auto 2600 /uL (1500-7000); Neutrophils Percent Auto 58.2 % (50-75); Platelet Count 182 X10^3/uL (150-400); Red Cell Distribution Width 13.2 % (11.6-14.8); White Blood Cell Count 4.4 X10^3/uL (4.5-11.0)
[2023-11-17 15:53] LABS: Alanine Aminotransferase 34 IU/L (<50); Albumin 4.5 g/dL (3.5-5.0); Albumin Globulin Ratio 1.6 (1.0-2.8); Alkaline Phosphatase 44 U/L (38-126); Aspartate Aminotransferase 43 IU/L (17-59); BUN Creatinine Ratio 18.7 (6-22); Bilirubin Total 0.7 mg/dL (0.2-1.3); Blood Urea Nitrogen 14 mg/dL (9-20); Calcium 9.9 mg/dL (8.4-10.2); Carbon Dioxide 29 mmol/L (22-32); Chloride 102 mmol/L (98-107); Cholesterol 253 mg/dL (140-199); Estimated Glomerular Filt Rate > 60 mL/min (>60); Globulin 2.9 g/dL (1.7-4.1); Glucose 85 mg/dL (80-110); HDL Cholesterol 86 mg/dL (40-60); HEMOLYSIS < 15 (0-50); LDL Cholesterol Calculated 154 mg/dL (<100); Potassium 4.7 mmol/L (3.4-5.1); Sodium 139 mmol/L (137-145); Total Protein 7.4 g/dL (6.3-8.2); Triglycerides 65 mg/dL (35-150)
== END ==
LOC: LAB 14:47
PROVIDERS: PCP Family Medicine; Referring Provider Family Medicine; Visit Provider Family Medicine
DX: H93.19 Tinnitus, unspecified ear (principal); D64.9 Anemia, unspecified; E78.5 Hyperlipidemia, unspecified
CPT/HCPCS: 36415; 80053; 80061; 85025

== ENCOUNTER → 2024-01-14 12:07 | Outpatient (CLI) | payer OTHER, SELFPAY ==
[2024-01-14 16:31] LABS: Urine N gonorrhoeae NOT DETECTED
[2024-01-14 17:04] LABS: Urine Chlamydia NOT DETECTED
== END ==
PROVIDERS: PCP Family Medicine; Visit Provider Nurse Practitioner Family
DX: R36.9 Urethral discharge, unspecified (principal); R30.0 Dysuria
CPT/HCPCS: 87086; 87491; 87591

== ENCOUNTER → 2024-11-17 07:56 | Outpatient (CLI) | payer OTHER, SELFPAY ==
[2024-11-17 08:45] LABS: Add Manual Diff / Slide Review NO; Basophils Absolute Auto 0 /uL (0-100); Basophils Percent Auto 0.7 % (0-2); Eosinophils Absolute Auto 100 /uL (0-450); Eosinophils Percent Auto 2.6 % (2-4); Hematocrit 40.3 % (41-53); Lymphocytes Absolute Auto 1600 /uL (1100-4500); Lymphocytes Percent Auto 42.3 % (25-40); Mean Corpuscular HGB Conc 34.7 % (30-36); Mean Corpuscular Hemoglobin 32.8 PG (26-34); Mean Corpuscular Volume 94.7 fL (80-100); Monocytes Absolute Auto 400 /uL (0-900); Monocytes Percent Auto 10.6 % (3-14); Neutrophils Absolute Auto 1700 /uL (1500-7000); Neutrophils Percent Auto 43.8 % (50-75); Platelet Count 234 X10^3/uL (150-400); Red Blood Cell Count 4.26 X10^6/uL (4.5-5.9); Red Cell Distribution Width 12.4 % (11.6-14.8); White Blood Cell Count 3.9 X10^3/uL (4.5-11.0)
[2024-11-17 09:05] LABS: Alanine Aminotransferase 29 IU/L (<50); Albumin 4.7 g/dL (3.5-5.0); Albumin Globulin Ratio 2.1 (1.0-2.8); Alkaline Phosphatase 43 U/L (38-126); Aspartate Aminotransferase 36 IU/L (17-59); BUN Creatinine Ratio 20.3 (6-22); Bilirubin Total 0.5 mg/dL (0.2-1.3); Blood Urea Nitrogen 16 mg/dL (9-20); Calcium 9.6 mg/dL (8.4-10.2); Carbon Dioxide 28 mmol/L (22-32); Chloride 102 mmol/L (98-107); Cholesterol 216 mg/dL (140-199); Estimated Glomerular Filt Rate > 60 mL/min (>60); Globulin 2.2 g/dL (1.7-4.1); Glucose 96 mg/dL (80-110); HDL Cholesterol 72 mg/dL (40-60); HEMOLYSIS < 15 (0-50); LDL Cholesterol Calculated 124 mg/dL (<100); Potassium 4.3 mmol/L (3.4-5.1); Sodium 137 mmol/L (137-145); Total Protein 6.9 g/dL (6.3-8.2); Triglycerides 102 mg/dL (35-150)
== END ==
PROVIDERS: PCP Family Medicine; Referring Provider Family Medicine; Visit Provider Family Medicine
DX: Z00.00 Encounter for general adult medical examination without abnormal findings (principal); E78.2 Mixed hyperlipidemia; D50.8 Other iron deficiency anemias; Z86.0100 Personal history of colon polyps, unspecified
CPT/HCPCS: 36415; 80053; 80061; 85025